=== PATIENT | female | born 1970 | race Caucasian/White ===

== ENCOUNTER 2016-10-03 06:26 | Inpatient (IN) | payer OTHER ==
[~2016-10-03] VITALS: Ht 152.4 cm; Wt 98.7 kg
[2016-10-03 07:07] LABS: CALCIUM 8.6 mg/dL (8.5-10.1); CARBON DIOXIDE 25.2 mmol/L (21-32); CHLORIDE SERUM 100 mmol/L (98-107); CREATININE SERUM 0.8 mg/dL (0.6-1.0); GFR1 > 60 mL/min; GLUCOSE SERUM 158 mg/dL (74-106); SODIUM SERUM 136 mmol/L (136-145)
[2016-10-03 07:11] LABS: ALBUMIN 3.4 g/dL (3.4-5.0); ALKALINE PHOSPHATASE 75 U/L (46-116); ALT/SGPT 17 U/L (14-59); AST/SGOT 12 U/L (15-37); BILIRUBIN TOTAL 0.3 mg/dL (0.20-1.00); TOTAL PROTEIN, SERUM 7.5 g/dL (6.4-8.2)
[2016-10-03 07:24] LABS: BASOPHIL % 0.4 % (0-2); PLATELET COUNT 248 x10^3mcL (130-400); RED CELL DISTRIBUTION WIDTH 13.2 % (11.5-14.5)
[2016-10-03] MEDS ORDERED: METFORMIN ER500 M1 PO (08:08)
[2016-10-03] MEDS ORDERED: ZESTRIL20 MG PO (08:08)
[2016-10-03] MEDS ORDERED: ATENOLOL50 MG PO (08:08)
[2016-10-03 08:45] VITALS: BP 114/62
[2016-10-03 08:54] LABS: CHOLESTEROL/HDL RATIO 3.1
[2016-10-03 08:59] LABS: T3 TOTAL 1.06 ng/mL
[2016-10-03 09:02] LABS: FREE T4 1.16 ng/dL (0.76-1.46); FREE THYROXINE INDEX 2.9 ug/dL (1.4-4.5); T4(THYROXINE) 9.4 ug/dL (4.7-13.3)
[2016-10-03 10:20] LABS: microscopic required? NO
[2016-10-03 10:27] LABS: UA SPECIFIC GRAVITY 1.015 (1.005-1.035); urine erythrocyte NEGATIVE (NEGATIVE)
[2016-10-03 10:37] LABS: AMPHETAMINE QUAL UR NONE DETECTED (NEG <=1000)
[2016-10-03 12:36] VITALS: BP 114/62
[2016-10-03 13:10] VITALS: BP 96/55
[2016-10-03 20:34] VITALS: BP 116/67
[2016-10-04 05:43] VITALS: BP 104/62
[2016-10-04 06:15] LABS: CALCIUM 7.9 mg/dL (8.5-10.1); CARBON DIOXIDE 25.5 mmol/L (21-32); CHLORIDE SERUM 105 mmol/L (98-107); CREATININE SERUM 0.8 mg/dL (0.6-1.0); GFR1 > 60 mL/min; GLUCOSE SERUM 105 mg/dL (74-106); MAGNESIUM 1.7 mg/dL (1.8-2.4); PHOSPHOROUS 3.4 mg/dL (2.5-4.9); POTASSIUM SERUM 4.2 mmol/L (3.5-5.1); SODIUM SERUM 138 mmol/L (136-145)
[2016-10-04 07:16] LABS: BASOPHIL % 0.7 % (0-2); PLATELET COUNT 216 x10^3mcL (130-400); RED CELL DISTRIBUTION WIDTH 12.4 % (11.5-14.5)
[2016-10-04 08:20] VITALS: BP 123/76
[2016-10-04 14:06] VITALS: BP 119/76
[2016-10-04 19:13] VITALS: BP 107/59
[2016-10-04 19:17] VITALS: BP 101/55
[2016-10-04 20:56] VITALS: BP 107/63
[2016-10-05 05:42] VITALS: BP 129/70
[2016-10-05 05:59] LABS: BASOPHIL % 0.2 % (0-2); PLATELET COUNT 220 x10^3mcL (130-400); RED CELL DISTRIBUTION WIDTH 13.4 % (11.5-14.5)
[2016-10-05 06:19] LABS: CALCIUM 7.3 mg/dL (8.5-10.1); CARBON DIOXIDE 25.3 mmol/L (21-32); CHLORIDE SERUM 107 mmol/L (98-107); CREATININE SERUM 0.6 mg/dL (0.6-1.0); GFR1 > 60 mL/min; GLUCOSE SERUM 99 mg/dL (74-106); MAGNESIUM 1.6 mg/dL (1.8-2.4); PHOSPHOROUS 3.1 mg/dL (2.5-4.9); POTASSIUM SERUM 3.7 mmol/L (3.5-5.1); SODIUM SERUM 140 mmol/L (136-145)
[2016-10-05 10:38] VITALS: BP 125/73
[2016-10-05] MEDS ORDERED: COZ25 PO (11:39)
[2016-10-05] MEDS ORDERED: MOT800 PO (11:40)
[2016-10-05] MEDS ORDERED: GLU500 PO (11:48)
[2016-10-05 13:12] VITALS: BP 125/73
== END 2016-10-05 13:41 | disposition home or self-care (01) | DRG 203 ==
LOC: ED 06:26 → DU 07:45 → MU 10-05 06:42
PROVIDERS: Emergency Medicine; ADMIT Family Medicine
DX: M94.0 Chondrocostal junction syndrome [Tietze] (principal); Z68.41 Body mass index [BMI] 40.0-44.9, adult; I10 Essential (primary) hypertension; E83.42 Hypomagnesemia; R73.03 Prediabetes; E78.5 Hyperlipidemia, unspecified; Z79.84 Long term (current) use of oral hypoglycemic drugs; I36.1 Nonrheumatic tricuspid (valve) insufficiency
CPT/HCPCS: 80307; 82962; 83880; 84439; J1885; J2270; J7030; Q0092

== ENCOUNTER 2020-07-24 21:52 | Emergency (ER) | payer OTHER, SELFPAY ==
[~2020-07-24] VITALS: Ht 152.4 cm; Wt 86.2 kg
[~2020-07-24 21:52] MED LIST: ATENOLOL50 MG PO; COZ25 PO; GLU500 PO; METFORMIN ER500 M1 PO; MOT800 PO; ZESTRIL20 MG PO
[2020-07-24 21:54] VITALS: Ht 152.4 cm; Wt 86.2 kg
[2020-07-24 22:41] VITALS: BP 147/91
== END 2020-07-24 22:41 | disposition home or self-care (01) ==
LOC: ED 21:52
DX: U07.1 COVID-19 (principal); I10 Essential (primary) hypertension; E11.9 Type 2 diabetes mellitus without complications; Z88.0 Allergy status to penicillin
CPT/HCPCS: U0003